=== PATIENT | female | born 1960 | race Caucasian/White ===

== ENCOUNTER 2019-09-29 10:28 | Day surgery (SDC) | payer BC ==
[~2019-09-29] VITALS: Ht 20.3 cm; Wt 92.1 kg
--- NOTE | ~2019-09-29 | O ---
[facility] [place] [address] OPERATIVE REPORT Name: INDIO HARRIS Room #: 150-3 [facility]#: [id number] Admission: 09/29/19 Attend Phys: Dandre Sosa MD Discharge: Date of : 64 Report #: [id number] THIS REPORT FOR: //name// CC: Physician staff Chai Nguyen DO [facility] DANDRE Sosa DATE OF SERVICE: 09/29/2019 SURGEON: Dandre Sosa MD ABNORMAL PSYCHOLOGY TEACHER: None. PREOPERATIVE DIAGNOSIS: Nasolacrimal duct obstruction, left. POSTOPERATIVE DIAGNOSIS: Nasolacrimal duct obstruction, left. OPERATIONS PERFORMED: 1. Incisional dacryocystorhinostomy. 2. Nasal surgical video endoscopy. 3. Silicone intubation. ANESTHESIA: General. COMPLICATIONS: None. INDICATIONS FOR PROCEDURE: This patient has an acquired nasolacrimal duct obstruction with chronic tearing and discharge. The current procedures are undertaken in order to improve the patient's level of comfort and visual clarity and to reduce the risk of recurrent infection. Informed consent was obtained to include but not limited to the potential risk for loss of vision, bleeding, infection, failure to improve the problem, scarring and the potential need for further surgery. DESCRIPTION OF OPERATION: The patient was taken to the operating room, where general anesthesia was administered. The medial canthal area was then generously infiltrated with 2% Xylocaine with epinephrine mixed with equal parts of 0.75% Marcaine with Wydase. The same anesthetic mixture was then used to anesthetize the lateral wall of the nose. The middle meatus was then packed with Afrin-soaked Cottonoids. The patient was subsequently prepped and draped in the usual sterile fashion. A skin-marking pen was then used to outline an incision over the anterior [address] [address] OPERATIVE REPORT Name: STEVENINDIO Irma Room #: 150-3 [facility]#: [id number] Admission: 09/29/19 Attend Phys: Dandre Sosa MD Discharge: Date of : 64 Report #: [id number] lacrimal crest inferiorly in the medial canthal area. The incision was then made with a 15 blade. The dissection was then carried down through the soft tissue until the periosteum was identified. Hemostasis was achieved with diligent monopolar cautery. The periosteum was then incised over the anterior lacrimal crest and then gently reflected laterally out of the lacrimal sac fossa. The lacrimal sac was retracted and the thin bone of the lacrimal sac fossa was gently infractured with a hemostat. Multiple rongeur bites were then used to create an osteotomy that was approximately 1.5 cm in diameter. The nasal mucosa was then injected with the same anesthetic mixture used at the beginning of the case. The nasal mucosa was then incised and an anteriorly hinged nasal mucosal flap made. The flap was drawn out of the field with interrupted 4-0 chromic sutures. The puncta were then dilated with a double-ended punctum dilator. Ayon tubes were then passed into the lacrimal sac and its margins were identified. A large anteriorly hinged lacrimal sac flap was subsequently created. The Ayon tubes were passed into the nose on a groove director transnasally. The anterior lacrimal sac flaps and nasal mucosal flaps were closed with interrupted 4-0 chromic sutures. The nasal surgical video endoscope was then brought into the field. The ostium was inspected and found to not be obstructed by the middle turbinate. The ostium was anterior and inferior to the root of the turbinate. There was no evidence of any septal obstruction of the newly created ostium. The subcutaneous structures around the wound were then closed with multiple interrupted 4-0 chromic sutures. The skin was closed with interrupted 6-0 plain gut sutures. The Ayon tubes were then secured to themselves with 3 square throws. The Ayon tubes were then secured to the lateral wall of the nose with a 5-0 Prolene suture. Antibiotic steroid drops were then placed on the surface of the eye and an antibiotic ointment on the incision. Two eye pads were then taped in place. The patient was transported to the recovery area, having tolerated the procedure well with no anesthetic or operative complications being noted. By: [id number] Dandre Sosa MD /nt
[~2019-09-29 10:28] MED LIST: CALCIUM + VITA1 EACH PO; LEXAPRO5 MG PO; OMEPRAZOLE 20 M20 M1 PO; SINGULAIR 10 MG10 M1 OR; SYNTHROID112 MC1 PO; VITAMIN D32000 UNIT PO
[2019-09-29 12:02] VITALS: BP 149/93
== END 2019-09-29 12:50 | disposition home or self-care (01) ==
LOC: OR 10:28 → TBA 10:32 → OR 12:05
DX: H04.552 Acquired stenosis of left nasolacrimal duct (principal); F32.9 Major depressive disorder, single episode, unspecified; K21.9 Gastro-esophageal reflux disease without esophagitis; Z87.891 Personal history of nicotine dependence; Z85.3 Personal history of malignant neoplasm of breast; Z98.890 Other specified postprocedural states; Z90.710 Acquired absence of both cervix and uterus; Z79.899 Other long term (current) drug therapy; Z88.2 Allergy status to sulfonamides; Z88.8 Allergy status to other drugs, medicaments and biological substances
CPT/HCPCS: 50010; 50101; 50386; 50398; 51636; 51777; 56528; 56531; 62110; 62900; 64037; 70005